=== PATIENT | female | born 1955 | race Caucasian/White ===

== ENCOUNTER 2017-09-28 09:20 | Outpatient (CLI) | payer MEDICAID ==
[~2017-09-28 09:20] MED LIST: CALC-964 PO; CHOL378P4 PO; CHOL400T57 PO; CLON-527 PO; DORZ10DR18 EACHEYE; EST1T PO; FENO145T38 PO; FURO40TA4 PO; HYDR-565 PO; IBUP-24 PO; LORA-660 PO; METF500T PO
== END 2017-09-28 10:14 | disposition home or self-care (01) ==
LOC: WOUND CARE 09:20 → EDSTATUS 09:30 → WOUND CARE 10:14
PROVIDERS: ATTEND Surgery
DX: E11.621 Type 2 diabetes mellitus with foot ulcer (principal); L97.521 Non-pressure chronic ulcer of other part of left foot limited to breakdown of skin; E11.22 Type 2 diabetes mellitus with diabetic chronic kidney disease; N18.3 Chronic kidney disease, stage 3 (moderate); E11.42 Type 2 diabetes mellitus with diabetic polyneuropathy; E11.618 Type 2 diabetes mellitus with other diabetic arthropathy; E11.36 Type 2 diabetes mellitus with diabetic cataract; E11.39 Type 2 diabetes mellitus with other diabetic ophthalmic complication; E66.9 Obesity, unspecified; E78.00 Pure hypercholesterolemia, unspecified; M19.90 Unspecified osteoarthritis, unspecified site; H40.9 Unspecified glaucoma; F41.9 Anxiety disorder, unspecified; F32.89 Other specified depressive episodes; Z85.41 Personal history of malignant neoplasm of cervix uteri; Z90.710 Acquired absence of both cervix and uterus; Z90.89 Acquired absence of other organs; Z68.38 Body mass index [BMI] 38.0-38.9, adult
CPT/HCPCS: 36416; 82948; 99215; A4414

== ENCOUNTER 2018-09-05 08:39 | Outpatient (CLI) | payer MEDICAID ==
[~2018-09-05 08:39] MED LIST changes: +HYDR-4353 PO; -HYDR-565 PO
== END 2018-09-05 10:59 | disposition home or self-care (01) ==
LOC: WOUND CARE 08:39 → EDSTATUS 09:00 → WOUND CARE 10:59
PROVIDERS: ATTEND Surgery
DX: E11.621 Type 2 diabetes mellitus with foot ulcer (principal); L97.521 Non-pressure chronic ulcer of other part of left foot limited to breakdown of skin; L97.511 Non-pressure chronic ulcer of other part of right foot limited to breakdown of skin; E11.22 Type 2 diabetes mellitus with diabetic chronic kidney disease; N18.3 Chronic kidney disease, stage 3 (moderate); E11.42 Type 2 diabetes mellitus with diabetic polyneuropathy; E11.618 Type 2 diabetes mellitus with other diabetic arthropathy; E11.36 Type 2 diabetes mellitus with diabetic cataract; E11.39 Type 2 diabetes mellitus with other diabetic ophthalmic complication; E66.9 Obesity, unspecified; E78.00 Pure hypercholesterolemia, unspecified; M19.90 Unspecified osteoarthritis, unspecified site; H40.9 Unspecified glaucoma; E11.65 Type 2 diabetes mellitus with hyperglycemia; F41.9 Anxiety disorder, unspecified; F32.89 Other specified depressive episodes; Z85.41 Personal history of malignant neoplasm of cervix uteri; Z90.710 Acquired absence of both cervix and uterus; Z90.89 Acquired absence of other organs; Z68.38 Body mass index [BMI] 38.0-38.9, adult
CPT/HCPCS: 36416; 82948; 99215; A4414

== ENCOUNTER 2018-09-19 08:50 | Day surgery (SDC) | payer MEDICAID ==
[~2018-09-19 08:50] MED LIST changes: -EST1T PO
[2018-09-19] MEDS ORDERED: LIDOcaine 1%/PF 5ML 10 MG/ML VIAL ONE (10:34)
[2018-09-19] MEDS ORDERED: mupirocin 2% ointment 22GM ONE ×2 (11:05→11:16)
--- NOTE | 2018-09-19 11:30 | NUR ---
Patient ambulated independently from [facility] accompanied by her and was admitted to outpatient wound care for physician visit with Adolfo Rodríguez MD. Dressing removed, wound cleansed. Patient assessed for changes in conditions, medications and medical history. 0938 - blood glucose 164. Patient instructed that elevated blood sugars delay healing of the wound and can cause further complications including but not limited to amputation of toes or feet. 1045 - Dr. Rodríguez at bedside accompanied by RN. Wound assessed, time out performed by MD/RN. Procedure performed as detailed in the physician progress/procedure note. Plan of care discussed with patient. Dressings placed per MD orders. Patient instructed on the signs and symptoms of infection and to call the Wound Center if any occur or to go to the ED if we are closed: Increased pain in wound Increase in drainage from the wound Redness in the skin surrounding the wound Bleeding from the wound Temperature of 101 or greater Patient instructed that the weight of their body puts a large amount of pressure on their wounds. This pressure keeps the new tissue from growing and inhibits new blood vessels from forming. Explained that, if they continue to bear weight on a body part that has a wound, the time it takes to heal the wound increases, the wound may get worse or the wound may not heal at all. Patient verbalized understanding of all discharge instructions and plan of care and ambulated independently out to [facility] accompanied by her and is in stable condition with no sign or symptom of distress at time of discharge.
== END 2018-09-19 11:32 | disposition home or self-care (01) ==
LOC: WOUND CARE 08:50
PROVIDERS: ATTEND Surgery
DX: D23.71 Other benign neoplasm of skin of right lower limb, including hip (principal); M79.674 Pain in right toe(s); E11.621 Type 2 diabetes mellitus with foot ulcer; E11.22 Type 2 diabetes mellitus with diabetic chronic kidney disease; N18.3 Chronic kidney disease, stage 3 (moderate); E11.42 Type 2 diabetes mellitus with diabetic polyneuropathy; E11.618 Type 2 diabetes mellitus with other diabetic arthropathy; E11.36 Type 2 diabetes mellitus with diabetic cataract; E11.39 Type 2 diabetes mellitus with other diabetic ophthalmic complication; E66.9 Obesity, unspecified; E78.00 Pure hypercholesterolemia, unspecified; M19.90 Unspecified osteoarthritis, unspecified site; H40.9 Unspecified glaucoma; E11.65 Type 2 diabetes mellitus with hyperglycemia; F41.9 Anxiety disorder, unspecified; Z90.710 Acquired absence of both cervix and uterus; Z90.89 Acquired absence of other organs; Z68.38 Body mass index [BMI] 38.0-38.9, adult
CPT/HCPCS: 11401; 36416; 82948; J2001

== ENCOUNTER 2018-10-05 08:55 | Day surgery (SDC) | payer MEDICAID ==
--- NOTE | 2018-10-05 10:20 | NUR ---
Patient ambulated independently from [facility] and was admitted to outpatient wound care for physician visit with Adolfo Rodríguez MD. Dressing removed, wound cleansed and lidocaine applied per order. Patient assessed for changes in conditions, medications and medical history. [id number] Patient instructed that elevated blood sugars delay healing of the wound and can cause further complications including but not limited to amputation of toes or feet. Dr. Rodríguez at bedside accompanied by RN. Wound assessed, time out performed by MD/RN. Wound debrided as detailed in the physician progress/procedure note. Plan of care discussed with patient. Dressings placed per MD orders. Patient instructed on the signs and symptoms of infection and to call the Wound Center if any occur or to go to the ED if we are closed: Increased pain in wound Increase in drainage from the wound Redness in the skin surrounding the wound Bleeding from the wound Temperature of 101 or greater Patient instructed that the weight of their body puts a large amount of pressure on their wounds. This pressure keeps the new tissue from growing and inhibits new blood vessels from forming. Explained that, if they continue to bear weight on a body part that has a wound, the time it takes to heal the wound increases, the wound may get worse or the wound may not heal at all. Patient verbalized understanding of all discharge instructions and plan of care and ambulated independently out to [facility] in stable condition with no sign or symptom of distress at time of discharge. Addendum: 10/05/18 at 1022 by Noa Mejía RN Amended: Links added.
== END 2018-10-05 10:13 | disposition home or self-care (01) ==
LOC: WOUND CARE 08:55
PROVIDERS: ATTEND Surgery
DX: E11.621 Type 2 diabetes mellitus with foot ulcer (principal); L97.511 Non-pressure chronic ulcer of other part of right foot limited to breakdown of skin; L97.521 Non-pressure chronic ulcer of other part of left foot limited to breakdown of skin; E11.22 Type 2 diabetes mellitus with diabetic chronic kidney disease; N18.3 Chronic kidney disease, stage 3 (moderate); E11.42 Type 2 diabetes mellitus with diabetic polyneuropathy; E11.618 Type 2 diabetes mellitus with other diabetic arthropathy; E11.36 Type 2 diabetes mellitus with diabetic cataract; E11.39 Type 2 diabetes mellitus with other diabetic ophthalmic complication; E66.9 Obesity, unspecified; E78.00 Pure hypercholesterolemia, unspecified; M19.90 Unspecified osteoarthritis, unspecified site; H40.9 Unspecified glaucoma; E11.65 Type 2 diabetes mellitus with hyperglycemia; F41.9 Anxiety disorder, unspecified; F32.89 Other specified depressive episodes; Z85.41 Personal history of malignant neoplasm of cervix uteri; Z90.710 Acquired absence of both cervix and uterus; Z90.89 Acquired absence of other organs; Z68.38 Body mass index [BMI] 38.0-38.9, adult
CPT/HCPCS: 36416; 82948; 97597; A6021; A6206

== ENCOUNTER 2018-10-12 08:49 | Outpatient (CLI) | payer MEDICAID ==
--- NOTE | 2018-10-12 14:26 | NUR ---
Patient ambulated independently from [facility] and was admitted to outpatient wound care for physician visit. Dressing removed, wound cleansed and Emla applied per order. Patient assessed for changes in conditions, medications and medical history. Dr. Rodríguez at bedside accompanied by RN. Wound assessed and no debridement was done. Plan of care discussed with patient. Dressings placed per MD orders. Patient instructed on the signs and symptoms of infection and to call the Wound Center if any occur or to go to the ED if we are closed: Increased pain in wound Increase in drainage from the wound Redness in the skin surrounding the wound Bleeding from the wound Temperature of 101 or greater Patient instructed that elevated blood sugars delay healing of the wound and can cause further complications including but not limited to amputation of toes or feet. Patient instructed that the weight of their body puts a large amount of pressure on their wounds. This pressure keeps the new tissue from growing and inhibits new blood vessels from forming. Explained that, if they continue to bear weight on a body part that has a wound, the time it takes to heal the wound increases, the wound may get worse or the wound may not heal at all. Patient verbalized understanding of all discharge instructions and plan of care and ambulated independently out to [facility] in stable condition with no sign or symptom of distress at time of discharge Addendum: 10/12/18 at 1431 by Noa Mejía RN Amended: Links added.
== END 2018-10-12 10:33 | disposition home or self-care (01) ==
LOC: WOUND CARE 08:49 → EDSTATUS 09:00 → WOUND CARE 10:33
PROVIDERS: ATTEND Surgery
DX: T81.89XD Other complications of procedures, not elsewhere classified, subsequent encounter (principal); E11.621 Type 2 diabetes mellitus with foot ulcer; L97.511 Non-pressure chronic ulcer of other part of right foot limited to breakdown of skin; L97.521 Non-pressure chronic ulcer of other part of left foot limited to breakdown of skin; E11.22 Type 2 diabetes mellitus with diabetic chronic kidney disease; N18.3 Chronic kidney disease, stage 3 (moderate); E11.42 Type 2 diabetes mellitus with diabetic polyneuropathy; E11.618 Type 2 diabetes mellitus with other diabetic arthropathy; E11.36 Type 2 diabetes mellitus with diabetic cataract; E11.39 Type 2 diabetes mellitus with other diabetic ophthalmic complication; E66.9 Obesity, unspecified; E78.00 Pure hypercholesterolemia, unspecified; M19.90 Unspecified osteoarthritis, unspecified site; H40.9 Unspecified glaucoma; F41.9 Anxiety disorder, unspecified; F32.89 Other specified depressive episodes; Z85.41 Personal history of malignant neoplasm of cervix uteri; Z90.710 Acquired absence of both cervix and uterus; Z90.89 Acquired absence of other organs; Z68.38 Body mass index [BMI] 38.0-38.9, adult; Y83.8 Other surgical procedures as the cause of abnormal reaction of the patient, or of later complication, without mention of misadventure at the time of the procedure
CPT/HCPCS: 36416; 82948; G0463; A6021

== ENCOUNTER 2018-10-26 08:46 | Outpatient (CLI) | payer MEDICAID ==
--- NOTE | 2018-10-26 13:53 | NUR ---
Patient ambulated independently from [facility] and was admitted to outpatient wound care for physician visit. Dressing removed, wound cleansed and Emla applied per order. Patient assessed and medications and medical history reviewed. Dr. Rodríguez at bedside accompanied by RN. Wound assessed and no debridement was done. Patient diagnosed as healed. No dressings ordered. Patient instructed on the signs and symptoms of infection and to call the Wound Center if any occur or to go to the ED if we are closed: Increased pain in wound Increase in drainage from the wound Redness in the skin surrounding the wound Bleeding from the wound Temperature of 101 or greater Patient verbalized understanding of all discharge instructions and plan of care and ambulated independently out to [facility] in stable condition with no complaints Addendum: 10/26/18 at 1357 by Noa Mejía RN Amended: Links added.
== END 2018-10-26 10:06 | disposition home or self-care (01) ==
LOC: WOUND CARE 08:46 → EDSTATUS 09:00 → WOUND CARE 10:06
PROVIDERS: ATTEND Surgery
DX: T81.89XD Other complications of procedures, not elsewhere classified, subsequent encounter (principal); E11.621 Type 2 diabetes mellitus with foot ulcer; L97.511 Non-pressure chronic ulcer of other part of right foot limited to breakdown of skin; L97.521 Non-pressure chronic ulcer of other part of left foot limited to breakdown of skin; E11.22 Type 2 diabetes mellitus with diabetic chronic kidney disease; N18.3 Chronic kidney disease, stage 3 (moderate); E11.42 Type 2 diabetes mellitus with diabetic polyneuropathy; E11.618 Type 2 diabetes mellitus with other diabetic arthropathy; E11.36 Type 2 diabetes mellitus with diabetic cataract; E11.39 Type 2 diabetes mellitus with other diabetic ophthalmic complication; E66.9 Obesity, unspecified; E78.00 Pure hypercholesterolemia, unspecified; M19.90 Unspecified osteoarthritis, unspecified site; H40.9 Unspecified glaucoma; L84 Corns and callosities; E11.65 Type 2 diabetes mellitus with hyperglycemia; F41.9 Anxiety disorder, unspecified; F32.89 Other specified depressive episodes; Z85.41 Personal history of malignant neoplasm of cervix uteri; Z90.710 Acquired absence of both cervix and uterus; Z90.89 Acquired absence of other organs; Z68.38 Body mass index [BMI] 38.0-38.9, adult; Y83.8 Other surgical procedures as the cause of abnormal reaction of the patient, or of later complication, without mention of misadventure at the time of the procedure
CPT/HCPCS: 36416; 82948; G0463; A4414

== ENCOUNTER 2019-03-14 09:00 | Outpatient (CLI) | payer MEDICAID ==
--- NOTE | 2019-03-14 11:30 | NUR ---
Patient ambulated independently from [facility] and was admitted to outpatient wound care for physician visit with Adolfo Rodríguez MD. No wounds, patient is here for "toe nails trimmed". Patient is instructed to obtain podiatry referral for future nail care. Patient assessed for changes in conditions, medications and medical history. 1100 - Dr. Rodríguez at bedside accompanied by RN. Orders written. Plan of care discussed with patient. Nail care performed as ordered by Juan Portillo LVN. Patient and verbalized understanding of all discharge instructions and plan of care and ambulated independently out to [facility] in stable condition with no sign or symptom of distress at time of discharge.
== END 2019-03-14 11:16 | disposition home or self-care (01) ==
LOC: WOUND CARE 09:00 → EDSTATUS 09:30 → WOUND CARE 11:16
PROVIDERS: ATTEND Surgery
DX: E11.65 Type 2 diabetes mellitus with hyperglycemia (principal); E11.22 Type 2 diabetes mellitus with diabetic chronic kidney disease; N18.3 Chronic kidney disease, stage 3 (moderate); E11.42 Type 2 diabetes mellitus with diabetic polyneuropathy; E11.618 Type 2 diabetes mellitus with other diabetic arthropathy; E11.36 Type 2 diabetes mellitus with diabetic cataract; E11.39 Type 2 diabetes mellitus with other diabetic ophthalmic complication; E66.9 Obesity, unspecified; E78.00 Pure hypercholesterolemia, unspecified; M19.90 Unspecified osteoarthritis, unspecified site; H40.9 Unspecified glaucoma; L84 Corns and callosities; F41.9 Anxiety disorder, unspecified; F32.89 Other specified depressive episodes; Z85.41 Personal history of malignant neoplasm of cervix uteri; Z90.710 Acquired absence of both cervix and uterus; Z90.89 Acquired absence of other organs; Z68.38 Body mass index [BMI] 38.0-38.9, adult
CPT/HCPCS: G0463

== ENCOUNTER 2021-12-02 16:52 | Inpatient (IN) | payer MEDICARE, MEDICAID ==
[~2021-12-02] VITALS: Ht 167.6 cm; Wt 97.3 kg
[~2021-12-02 16:52] MED LIST changes: -CALC-964 PO; +CALC260T15 PO; +CEPH500C2 PO; +CHOL20002 PO; +CHOL378P PO; -CHOL378P4 PO; -CHOL400T57 PO; -CLON-527 PO; +CYCL5TAB4 PO; -DORZ10DR18 EACHEYE; -FURO40TA4 PO; +GLIP5TAB13 PO; +HYDR-3972 PO; -HYDR-4353 PO; -IBUP-24 PO; -LORA-660 PO; +LORA10TA7 PO; -METF500T PO; +SIMV-42 PO; +TIMO5DRO4 EACHEYE
[2021-12-02] MEDS ORDERED: ondansetron/PF 4mg/2ml inj IV ONE (17:10)
[2021-12-02] MEDS ORDERED: normal saline 1000ML IV soln IVB ONE (17:10)
[2021-12-02 17:45] LABS: BASOPHILS % (AUTO) 0.1 % (0-1); EOSINOPHILS # (AUTO) 0.2 X10'3 (0-0.9); EOSINOPHILS % (AUTO) 0.8 % (0-6); HEMATOCRIT 34.7 % (35.0-45.0); HEMOGLOBIN 11.9 g/dl (12.0-16.0); LYMPHOCYTES # (AUTO) 0.8 X10'3 (1.1-4.8); LYMPHOCYTES % (AUTO) 3.9 % (21-51); MEAN CORPUSCULAR HEMOGLOBIN 29.7 PG (27.0-31.0); MEAN CORPUSCULAR HGB CONC 34.2 g/dL (33.0-36.5); MEAN PLATELET VOLUME 9.7 FL (7.4-10.4); MONOCYTES % (AUTO) 4.9 % (2-12); NEUTROPHILS # (AUTO) 19.4 X10'3 (1.8-7.7); NEUTROPHILS % (AUTO) 90.3 % (42-75); PLATELET COUNT 132 X10'3 (140-440); RED BLOOD COUNT 3.99 X10'6 (4.20-5.60); RED CELL DISTRIBUTION WIDTH 13.8 % (11.5-14.5); WHITE BLOOD COUNT 21.5 X10'3 (4.5-11.0)
[2021-12-02 18:09] LABS: ALANINE AMINOTRANSFERASE 35 U/L (12-78); ALBUMIN/GLOBULIN RATIO 0.6 (1.1-1.5); ALKALINE PHOSPHATASE 97 IU/L (46-116); ANION GAP 17 (8-16); ASPARTATE AMINO TRANSFERASE 25 U/L (10-37); BILIRUBIN,TOTAL 0.6 MG/DL (0.1-1.0); BLOOD UREA NITROGEN 78 MG/DL (7-18); BUN/CREATININE RATIO 28.9 (6.6-38.0); CALCIUM 9.1 MG/DL (8.5-10.1); CHLORIDE 96 MMOL/L (99-107); GLUCOSE 240 MG/DL (70-104); LIPASE 77 U/L (73-393); MAGNESIUM 1.9 MG/DL (1.5-2.4); SODIUM 133 MMOL/L (135-145); TOTAL CARBON DIOXIDE 19.9 MMOL/L (24-32); eGFR 18 ML/MIN
[2021-12-02] MEDS ORDERED: metoclopramide 5 mg/ml inj IV ONE (18:15)
[2021-12-02 18:16] LABS: POTASSIUM 2.7 MMOL/L (3.5-5.1)
[2021-12-02] MEDS: potassium CL 10mEq/100ml bag 100 ML IV SCH ×2 (19:08→20:37)
[2021-12-02] MEDS ORDERED: CefTRIAXone/D5W-Rocephin 1gm 50 ML IV ONE (19:30)
--- NOTE | 2021-12-02 19:45 | NUR ---
Placed patient on bed gomes for urine. no urine at this time, will attempt.
[2021-12-02 20:44] LABS: CLARITY,URINE CLOUDY (Clear); COLOR,URINE YELLOW (Yellow); GLUCOSE, URINE NEGATIVE (Neg); KETONES,URINE TRACE mg/dl (Neg); LEUKOCYTE ESTERASE ,URINE SMALL (Neg); NITRITES, URINE NEGATIVE (Neg); OCCULT BLOOD,URINE LARGE (Neg); PH,URINE 5.5 (4.8-8.0); PROTEIN,URINE 100 mg/dl (Neg); UROBILINOGEN,URINE 0.2 E.U/dL (0.2-1.0)
[2021-12-02 20:53] LABS: UA COLLECTION TYPE STRAIGHT CATH
[2021-12-02 20:57] LABS: BACTERIA,URINE 4+ /HPF (Neg); MUCUS STRANDS NONE SEEN /LPF (Neg); RBC,URINE 0-2 /HPF (0-2); SQUAMOUS EPITHELIAL CELL,UR FEW /LPF (FEW); WBC,URINE 20-30 /HPF (0-4)
[2021-12-02 20:58] LABS: AMORPHOUS URATES 1+; WBC CLUMPS,URINE MODERATE /HPF (NEGATIVE)
--- NOTE | 2021-12-02 21:12 | NUR ---
Patient resting in room, aware of admission. A+ox4. Denies n/v or pain. Awaiting room and orders.
[2021-12-02] MEDS ORDERED: CLON-527 PO (21:30)
[2021-12-02] MEDS ORDERED: potassium Cl 20 mEq SR tablet PO PRN ×2 (21:35)
[2021-12-02] MEDS ORDERED: acetaminophen 325mg tablet PO PRN (21:35)
[2021-12-02] MEDS ORDERED: magnesium 4gm in 100ml NS 100 ML IV PRN (21:35)
[2021-12-02] MEDS ORDERED: magnesium 2GM in 50ml NS 50 ML IV PRN (21:35)
[2021-12-02] MEDS ORDERED: magnesium Cl slow-release 64mg tablet PO PRN (21:35)
[2021-12-02] MEDS ORDERED: morphine 2 MG/ML inj. syringe IV PRN (21:35)
[2021-12-02 22:46] LABS: MAGNESIUM 1.8 MG/DL (1.5-2.4)
[2021-12-02 22:52] LABS: POTASSIUM 2.9 MMOL/L (3.5-5.1)
[2021-12-02 23:00] VITALS: BP 122/50
[2021-12-03] VITALS (7 sets, daily range): BP systolic 103–138; BP diastolic 46–55
[2021-12-03] MEDS: normal saline 1000ml 1,000 ML IV SCH ×3 (01:44→17:37)
[2021-12-03] MEDS: potassium CL 10mEq/100ml bag 100 ML IV PRN ×7 (01:44→17:37)
--- NOTE | 2021-12-03 06:30 | NUR ---
Patient in room PCU 3013. I have received report from LUIS Rayo and had the opportunity to ask questions and assume patient care.
[2021-12-03 07:37] LABS: BASOPHILS % (AUTO) 0.1 % (0-1); EOSINOPHILS # (AUTO) 0.1 X10'3 (0-0.9); EOSINOPHILS % (AUTO) 0.9 % (0-6); HEMATOCRIT 35.4 % (35.0-45.0); HEMOGLOBIN 11.8 g/dl (12.0-16.0); LYMPHOCYTES # (AUTO) 0.7 X10'3 (1.1-4.8); LYMPHOCYTES % (AUTO) 5.8 % (21-51); MEAN CORPUSCULAR HEMOGLOBIN 29.8 PG (27.0-31.0); MEAN CORPUSCULAR HGB CONC 33.4 g/dL (33.0-36.5); MEAN CORPUSCULAR VOLUME 89.3 FL (78-98); MEAN PLATELET VOLUME 9.9 FL (7.4-10.4); MONOCYTES # (AUTO) 0.3 X10'3 (0-0.9); MONOCYTES % (AUTO) 2.2 % (2-12); NEUTROPHILS # (AUTO) 10.4 X10'3 (1.8-7.7); PLATELET COUNT 124 X10'3 (140-440); RED BLOOD COUNT 3.96 X10'6 (4.20-5.60); RED CELL DISTRIBUTION WIDTH 14.2 % (11.5-14.5); WHITE BLOOD COUNT 11.4 X10'3 (4.5-11.0)
[2021-12-03] MEDS: ondansetron/PF 4mg/2ml inj IV PRN ×2 (07:47→21:08)
[2021-12-03 07:55] LABS: ALBUMIN 2.8 G/DL (3.4-5.0); ANION GAP 16 (8-16); BLOOD UREA NITROGEN 64 MG/DL (7-18); BUN/CREATININE RATIO 29.2 (6.6-38.0); CALCIUM 8.8 MG/DL (8.5-10.1); CHLORIDE 103 MMOL/L (99-107); CREATININE 2.19 MG/DL (0.40-0.90); GLUCOSE 185 MG/DL (70-104); MAGNESIUM 2.1 MG/DL (1.5-2.4); POTASSIUM 3.3 MMOL/L (3.5-5.1); SODIUM 138 MMOL/L (135-145); TOTAL CARBON DIOXIDE 18.8 MMOL/L (24-32); eGFR 22 ML/MIN
[2021-12-03] MEDS: K and/or MAG REPLACEMENT MC SCH ×2 (08:00→18:48)
[2021-12-03] MEDS ORDERED: GLIP5TAB13 PO (09:52)
--- NOTE | 2021-12-03 11:48 | NUR ---
PAGER ID: [phone] MESSAGE: Re: [id number] Karen Demarcus she is requesting Tylenol for pain, it only ordered for a fever. Dr. Jiménez came by and said she can eat. Please advise. Thank you Trini SMITH ext [phone]
[2021-12-03] MEDS: acetaminophen 325mg tablet PO PRN (12:18)
--- NOTE | 2021-12-03 13:43 | NUR ---
Paged hospitalist: PAGER ID: [phone] MESSAGE: Room: 3013B: Demarcus: Pt has NIDDM. Would you like to place them on a carb control diet and/or AC/HS blood sugars with insulin? Their blood sugars throughout the day have been 184 AM and 181 for lunch. Luiza RN [phone]
[2021-12-03] MEDS ORDERED: dextrose 50%-water 50ml dispensing syringe IV PRN ×2 (13:55)
[2021-12-03] MEDS ORDERED: DEXTROSE 15 GM of carb/4 tabs (each vial/BOTTLE has 4 tablets) PO PRN ×2 (13:55)
[2021-12-03] MEDS ORDERED: glucagon, human recombinant 1mg kit SUBCUT PRN (13:55)
[2021-12-03] MEDS ORDERED: MESSAGE TO PHARMACY PO ONE (13:55)
[2021-12-03] MEDS ORDERED: mineral oil 133ml enema RC PRN (14:20)
[2021-12-03] MEDS: insulin Lispro (HumaLOG) vial - multi-dose SQ SCH (15:53)
--- NOTE | 2021-12-03 16:10 | NUR ---
Paged hospitalist: PAGER ID: [phone] MESSAGE: Room 3013B: Demarcus: Pt is requesting to take two of their home medications: timolol for both eyes BID and clonazepam 1 mg BID. LUIS Jarrett [id number]
--- NOTE | 2021-12-03 18:18 | NUR ---
Problems reprioritized. Patient report given, questions answered & plan of care reviewed with mehran.
[2021-12-03] MEDS: CefTRIAXone/D5W-Rocephin 1gm 50 ML IV SCH (19:30)
[2021-12-03] MEDS ORDERED: pantoprazole 40mg Tablet.DR PO SCH (20:00)
[2021-12-03] MEDS ORDERED: docusate sod 100mg capsule PO SCH (20:00)
[2021-12-03] MEDS: insulin glargine (Lantus) pen - multi-dose SQ SCH (21:00)
[2021-12-03] MEDS: timolol 0.5% ophthalmic solution 5ml bottle EACHEYE SCH (21:08)
[2021-12-03] MEDS: clonazePAM 1mg tablet PO SCH (21:09)
[2021-12-04 02:00] VITALS: BP 113/52
[2021-12-04] MEDS: ondansetron/PF 4mg/2ml inj IV PRN (03:46)
[2021-12-04] MEDS: normal saline 1000ml 1,000 ML IV SCH ×3 (04:31→22:43)
[2021-12-04 06:00] VITALS: BP 130/66
--- NOTE | 2021-12-04 06:25 | NUR ---
Problems reprioritized. Patient report given, questions answered & plan of care reviewed with LUIS Feliz.
[2021-12-04] MEDS: K and/or MAG REPLACEMENT MC SCH ×2 (08:00→20:00)
[2021-12-04 08:06] LABS: BASOPHILS % (AUTO) 0.2 % (0-1); EOSINOPHILS # (AUTO) 0.2 X10'3 (0-0.9); HEMOGLOBIN 9.8 g/dl (12.0-16.0); MONOCYTES # (AUTO) 0.6 X10'3 (0-0.9)
[2021-12-04 08:09] LABS: EOSINOPHILS % (AUTO) 2.9 % (0-6); HEMATOCRIT 28.9 % (35.0-45.0); LYMPHOCYTES % (AUTO) 14.6 % (21-51); MEAN CORPUSCULAR HEMOGLOBIN 29.8 PG (27.0-31.0); MEAN CORPUSCULAR HGB CONC 33.9 g/dL (33.0-36.5); MEAN CORPUSCULAR VOLUME 87.9 FL (78-98); MEAN PLATELET VOLUME 10.1 FL (7.4-10.4); MONOCYTES % (AUTO) 8.9 % (2-12); NEUTROPHILS # (AUTO) 5.1 X10'3 (1.8-7.7); NEUTROPHILS % (AUTO) 73.4 % (42-75); PLATELET COUNT 113 X10'3 (140-440); RED BLOOD COUNT 3.28 X10'6 (4.20-5.60); RED CELL DISTRIBUTION WIDTH 13.9 % (11.5-14.5)
[2021-12-04 08:30] LABS: ALBUMIN 2.3 G/DL (3.4-5.0); ANION GAP 12 (8-16); BLOOD UREA NITROGEN 42 MG/DL (7-18); BUN/CREATININE RATIO 26.6 (6.6-38.0); CHLORIDE 113 MMOL/L (99-107); CREATININE 1.58 MG/DL (0.40-0.90); GLUCOSE 154 MG/DL (70-104); MAGNESIUM 2.2 MG/DL (1.5-2.4); POTASSIUM 3.5 MMOL/L (3.5-5.1); SODIUM 144 MMOL/L (135-145); TOTAL CARBON DIOXIDE 19.1 MMOL/L (24-32); eGFR 33 ML/MIN
[2021-12-04] MEDS: clonazePAM 1mg tablet PO SCH ×2 (09:38→20:39)
[2021-12-04] MEDS: timolol 0.5% ophthalmic solution 5ml bottle EACHEYE SCH ×2 (09:39→20:39)
[2021-12-04 11:00] VITALS: BP 101/43
--- NOTE | 2021-12-04 12:39 | NUR ---
PAGER ID: [phone] MESSAGE: [id number] Karen Tracy has a sore throat from the vomiting she is asking for tesslon pearls or lozenges. Please advise Trini SMITH [phone]
--- NOTE | 2021-12-04 16:05 | NUR ---
Noted pt with T2DM, fairly well controlled with A1c 7.6% which is down from 8.9% in April of 2021 per EMR. Pt seen at bedside states she sees a physician q 3-6 months, takes DM medications per rx without difficulties, and checks her BG levels BID at 0800 and 1600 with resulting numbers ranging from 112-140s on a good day. Pt denies questions about DM management at this time. Pt states prior to her passing her mother was a dietitian. Pt provided with written DM education. Pt endorses a good appetite though reports difficulty eating d/t sore throat and requests soft food for dinner [employer], d/w dietary. Pt denies food allergies or difficulty chewing/swallowing outside of current sore throat. Pt provided with RD contact information and encouraged to reach out if with questions regarding DM management and/or food preferences. Will continue to follow. Addendum: 12/04/21 at [address] Amended: Links added.
[2021-12-04 18:00] VITALS: BP 115/57
--- NOTE | 2021-12-04 18:15 | NUR ---
Patient in room PCU 3013. I have received report from LUIS Feliz and had the opportunity to ask questions and assume patient care.
[2021-12-04] MEDS: insulin Lispro (HumaLOG) vial - multi-dose SQ SCH (19:05)
[2021-12-04] MEDS: CefTRIAXone/D5W-Rocephin 1gm 50 ML IV SCH (20:38)
[2021-12-04] MEDS: acetaminophen 325mg tablet PO PRN (20:48)
[2021-12-04 22:00] VITALS: BP 119/56
[2021-12-04] MEDS: insulin glargine (Lantus) pen - multi-dose SQ SCH (22:42)
[2021-12-05 02:00] VITALS: BP 104/59
[2021-12-05 06:00] VITALS: BP 133/62
--- NOTE | 2021-12-05 06:57 | NUR ---
Problems reprioritized. Patient report given, questions answered & plan of care reviewed with Carol RN.
[2021-12-05 07:00] LABS: BASOPHILS % (AUTO) 0.4 % (0-1); EOSINOPHILS # (AUTO) 0.2 X10'3 (0-0.9); EOSINOPHILS % (AUTO) 3.1 % (0-6); HEMATOCRIT 29.3 % (35.0-45.0); HEMOGLOBIN 9.9 g/dl (12.0-16.0); LYMPHOCYTES # (AUTO) 1.1 X10'3 (1.1-4.8); LYMPHOCYTES % (AUTO) 16.9 % (21-51); MEAN CORPUSCULAR HEMOGLOBIN 29.9 PG (27.0-31.0); MEAN CORPUSCULAR HGB CONC 33.7 g/dL (33.0-36.5); MEAN CORPUSCULAR VOLUME 88.8 FL (78-98); MEAN PLATELET VOLUME 9.1 FL (7.4-10.4); MONOCYTES # (AUTO) 0.6 X10'3 (0-0.9); MONOCYTES % (AUTO) 9.6 % (2-12); NEUTROPHILS # (AUTO) 4.6 X10'3 (1.8-7.7); PLATELET COUNT 127 X10'3 (140-440); RED CELL DISTRIBUTION WIDTH 13.9 % (11.5-14.5); WHITE BLOOD COUNT 6.5 X10'3 (4.5-11.0)
[2021-12-05 08:17] LABS: PLATELET ESTIMATE DECREASED; TOTAL CELLS COUNTED 100
[2021-12-05 08:18] LABS: POIKILOCYTOSIS FEW; POLYCHROMASIA FEW
[2021-12-05 08:36] LABS: ALBUMIN 2.2 G/DL (3.4-5.0); BLOOD UREA NITROGEN 28 MG/DL (7-18); BUN/CREATININE RATIO 20.9 (6.6-38.0); CALCIUM 8.6 MG/DL (8.5-10.1); CREATININE 1.34 MG/DL (0.40-0.90); GLUCOSE 177 MG/DL (70-104); MAGNESIUM 1.8 MG/DL (1.5-2.4); TOTAL CARBON DIOXIDE 20.9 MMOL/L (24-32); eGFR 40 ML/MIN
[2021-12-05] MEDS: clonazePAM 1mg tablet PO SCH (09:36)
[2021-12-05] MEDS: timolol 0.5% ophthalmic solution 5ml bottle EACHEYE SCH (09:47)
[2021-12-05] MEDS: normal saline 1000ml 1,000 ML IV SCH (09:51)
[2021-12-05 11:00] VITALS: BP 133/68
[2021-12-05 14:58] LABS: POTASSIUM 3.7 MMOL/L (3.3-5.1)
--- NOTE | 2021-12-05 15:35 | NUR ---
Discharged. Teaching/Instructions given to pt and spouse. Pt discharged to personal car via w/c accompanied by staff.IV discontinued, telemetry removed. Denies any complaints or requests prior. No prescriptions given prior discharge.
[2021-12-07 05:42] LABS: HBSAG SCREEN Negative (Negative); HEP A AB, IGM Negative (Negative); HEPATITIS C ANTIBODY <0.1 s/co ratio (0.0-0.9)
== END 2021-12-05 15:30 | disposition home or self-care (01) | DRG 690 ==
LOC: ER 16:52 → ED HOLD 21:38 → PCU 3S 22:48
PROVIDERS: ADMIT Internal Medicine; ATTEND Internal Medicine
PROC: 5A09357 Assistance with Respiratory Ventilation, Less than 24 Consecutive Hours, Continuous Positive Airway Pressure (ICD-10-PCS; principal; 2021-12-03)
PROC: 5A09357 Assistance with Respiratory Ventilation, Less than 24 Consecutive Hours, Continuous Positive Airway Pressure (ICD-10-PCS; 2021-12-04)
DX: N13.6 Pyonephrosis (principal); N17.0 Acute kidney failure with tubular necrosis; E11.9 Type 2 diabetes mellitus without complications; E78.5 Hyperlipidemia, unspecified; R19.7 Diarrhea, unspecified; E87.6 Hypokalemia; E86.0 Dehydration; Z85.41 Personal history of malignant neoplasm of cervix uteri; Z90.49 Acquired absence of other specified parts of digestive tract; Z90.710 Acquired absence of both cervix and uterus; Z79.84 Long term (current) use of oral hypoglycemic drugs; Z88.8 Allergy status to other drugs, medicaments and biological substances; Z79.899 Other long term (current) drug therapy
CPT/HCPCS: 36415; 74176; 80048; 80053; 80074; 81001; 82948; 83036; 83690; 83735; 84132; 85007; 85025; 87077; 87081; 87088; 87186; 99285; G0378; J0696; J1815; J2405; J2765; J3480; J7030